=== PATIENT | female | born 1985 | race Caucasian/White ===

== ENCOUNTER 2017-10-17 16:02 | Observation (INO) ==
--- NOTE | 2017-10-17 16:10 | Emergency Department Note ---
Disposition Clinical Impression: Screening examination for STD (sexually transmitted disease) Abdominal pain Qualifiers: Abdominal location: unspecified location Qualified Code(s): R10.9 - Unspecified abdominal pain Acute appendicitis Qualifiers: Acute appendicitis type: unspecified acute appendicitis type Qualified Code(s) : K35.80 - Unspecified acute appendicitis UTI (urinary tract infection) Qualifiers: Urinary tract infection type: acute cystitis Hematuria presence: without hematuria Qualified Code(s): N30.00 - Acute cystitis without hematuria Disposition: Admitted As Inpatient Condition: Fair General Adult HPI - General Chief complaint: ED Abdominal Pain Stated complaint: abd pain Nursing Notes Reviewed: Yes Vital Signs Reviewed: Yes - History of Present Illness HPI Narrative: 32-year-old female presents emergency department with concern for generalized lower abdominal pain starting since last . Patient states that she slept all day yesterday, and aside from to the emergency department today. Patient denies any nausea or vomiting. Patient does state that she has had pyelonephritis before, but states she feels different. Patient still reports having her appendix and gallbladder. Patient denies any blood in her urine, but states that it appears a little darker. Patient denies any increased urinary frequency or urgency. Patient denies back pain. Patient does state she has a history of kidney stones. Reports nonbloody diarrhea. Reports no new vaginal discharge, genital lesions, or history of sexual transmitted infections. Patient does state that she has sex with multiple partners without condoms. Pain Scale: 8 - Related Data Previous Rx's Medication Instructions Recorded Ondansetron [Zofran] 8 mg PO Q8HR PRN #10 tablet 01/17/16 Promethazine [Phenergan] 25 mg RC Q6HR PRN #12 supp.rect 01/17/16 Allergies Allergy/AdvReac Type Severity Reaction Status Date / Time Penicillins AdvReac Hives Verified 01/17/16 20:12 Sulfa (Sulfonamide AdvReac Hives Verified 01/17/16 20:12 Antibiotics) All systems ED: reviewed and negative except as stated. Review of Systems: As Per HPI Constitutional: Denies: fever Cardiovascular: Denies: chest pain Respiratory: Denies: cough Gastrointestinal: Reports: abdominal pain. Denies: nausea, vomiting Genitourinary: Denies: urgency, dysuria, genital lesions Musculoskeletal: Denies: back pain Past Medical History - Past Medical History Medical history: Reports: kidney stones Psychiatric history: Reports: anxiety, bipolar, depression MEAT STUFFER history: Reports: no MEAT STUFFER history - Social History Smoking Status: Current every day smoker Smokeless Tobacco Status: No Alcohol use: Reports: occasionally Drug use: Reports: none Physical Exam - General General appearance: other (Appears uncomfortable) - Head Head exam: atraumatic, normocephalic - Eye Eye exam: Present: EOMI. Absent: scleral icterus - ENT ENT exam: normal oropharynx - Neck Neck exam: Present: trachea midline - Chest Chest inspection: Present: symmetric chest wall rise - Respiratory Respiratory exam: Present: normal lung sounds bilaterally. Absent: respiratory distress, accessory muscle use - Cardiovascular Cardiovascular exam: Present: normal rhythm, tachycardia - Abdominal Exam Abdominal exam: Present: soft, tenderness Abdominal tenderness: Present: RLQ, LLQ, diffuse, moderate - Female Appeals Assistant present during exam: Yes External Exam: Present: normal external exam Speculum Exam: Present: cervical discharge (Mucopurulent) Bimanual Exam: Present: right adnexal tenderness, left adnexal tenderness - Extremities Exam Extremities exam: Present: normal capillary refill - Back Exam Back exam: Absent: CVA tenderness (R), CVA tenderness (L) - Neurological Exam Neurological exam: Present: alert, oriented X3 - Psychiatric Psychiatric exam: Present: normal affect, normal mood Course Vital Signs Temperature 98.6 F 10/17/17 16:06 Pulse Rate 138 10/17/17 16:06 Respiratory Rate 20 10/17/17 16:06 Blood Pressure 111/78 10/17/17 16:06 O2 Sat by Pulse Oximetry 97 10/17/17 16:06 Temperature 98.1 F 10/17/17 22:12 Pulse Rate 85 10/17/17 22:12 Respiratory Rate 16 10/17/17 22:12 Blood Pressure 99/63 10/17/17 22:12 O2 Sat by Pulse Oximetry 100 10/17/17 22:12 Oxygen Delivery Oxygen Delivery Room Air Medical Decision Making - [facility] Narrative Medical decision making narrative: 32-year-old female presents emergency department with concern for abdominal pain. Patient is tachycardic initially, we obtain electrocardiogram and chest revealed nonspecific ST changes. Patient's not reporting chest pain. Patient is currently in sinus. We are obtaining a CT scan of abdomen and pelvis to rule out any intra-abdominal abnormality. Urinalysis reveals positive nitrites , mild leukocyte esterase, bacteria. test is negative. Patient has been provided a gram of Rocephin here in the emergency department. 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 We have given her Tylenol and Toradol for pain. We have provided a liter of normal saline. Patient has leukocytosis of 21.4. 19:35 CT scan of the abdomen and pelvis reveals tip appendicitis. I called Dr. Be. He will come down and see the patient at bedside. Dr. Be agrees to accept patient for admission for further management. Gonorrhea and chlamydia results are not here at this time. Patient has been getting Levaquin and Flagyl in addition to the gram of Rocephin she had today. Diagnosis is appendicitis with urinary tract infection. Abdomen/Pelvis CT 10/17/17 00:00 IMPRESSION: Findings suggestive of tip appendicitis, though I cannot exclude other etiologies for the inflammatory change and fluid seen in the right lower quadrant including ruptured follicle. Correlate with white blood cell count and physical exam findings. D/ / Elliott Lynch / Elliott Lynch Interpreting Provider: Elliott Lynch - Lab Data Result diagrams: 10/17/17 17:06 10/17/17 17:54 Lab Results 10/17/17 10/17/17 10/17/17 Range/Units 16:18 16:43 16:43 WBC (4.3-11.1) K/mcL RBC (3.82-4.97) M/mcL Hgb (11.5-15.4) g/dL Hct (35.3-44.9) % MCV (83.0-100.0) fL MCH (28.0-33.3) pg MCHC (31.6-35.5) g/dL RDW (11.5-14.5) % Plt Count (140-400) K/mcL MPV (9.4-12.4) fL Immature Gran % (0-4) % Seg Neutrophils % % Lymphocytes % % Monocytes % % Eosinophils % % Basophils % % Neutrophils # (1.6-8.9) K/mcL Lymphocytes # (0.6-4.6) K/mcL Monocytes # (0.0-1.3) K/mcL Eosinophils # (0.0-0.6) K/mcL Basophils # (0.0-0.2) K/mcL Sodium (136-145) mEq/L Potassium (3.5-5.1) mEq/L Chloride (98-107) mEq/L Carbon Dioxide (23-29) mEq/L BUN (6-20) mg/dL Creatinine (0.60-1.20) mg/dL Est GFR ( Amer) (> 60) Est GFR (Non-Af Amer) (> 60) BUN/Creatinine Ratio (6-26) Glucose (70-105) mg/dL Calculated Osmolality (280-300) Lactic Acid 1.4 (0.5-2.2) mmol/L Calcium (8.6-10.3) mg/dL Total Bilirubin (0.3-1.0) mg/dL AST (13-39) Units/L ALT (7-52) Units/L Alkaline Phosphatase (34-104) Units/L Serum Total Protein (6.4-8.9) g/dL Albumin (3.5-5.7) g/dL Globulin (2.4-3.5) g/dL Albumin/Globulin Ratio (1.1-2.2) Lipase (11-82) Units/L Urine Color Dark Yellow (Yellow) Urine Clarity Cloudy A (Clear) Urine pH 5.5 (5.0-8.0) pH Units Ur Specific [place] 1.030 H (1.010-1.025) Urine Protein 100 H (Neg-Trace) mg/dL Urine Glucose (UA) Normal (Normal) mg/dL Urine Ketones Negative (Negative) mg/dL Urine Blood Negative (Negative) Urine Nitrite Positive A (Negative) Urine Bilirubin Small H (Negative) Urine Urobilinogen Normal (Normal) mg/dL Ur Leukocyte Esterase Trace H (Negative) Urine Microscopic RBC 5-15 H (0-3) per hpf Urine Microscopic WBC 5-15 H (0-3) per hpf Ur Squamous Epith Cells Many H (None-Few) per lpf Urine Bacteria Many H (None-Few) per hpf Hyaline Casts Few (None-Few) per lpf Ur Culture Indicated? NO. A (NO) Urine Test Negative (Negative) Alta species DNA (Not Detect) Chlam trachomat DNA PCR (Not Detect) Gardnerella DNA Probe (Not Detect) N.gonorrhoeae DNA (PCR) (Not Detect) Trichomonas DNA Probe (Not Detect) Specimen Rejected 10/17/17 10/17/17 10/17/17 Range/Units 17:06 17:43 17:54 WBC 21.4 H (4.3-11.1) K/mcL RBC 5.21 H (3.82-4.97) M/mcL Hgb 14.8 (11.5-15.4) g/dL Hct 44.5 (35.3-44.9) % MCV 85.4 (83.0-100.0) fL MCH 28.4 (28.0-33.3) pg MCHC 33.3 (31.6-35.5) g/dL RDW 14.2 (11.5-14.5) % Plt Count 264 (140-400) K/mcL MPV 10.8 (9.4-12.4) fL Immature Gran % 2.7 (0-4) % Seg Neutrophils % 89.7 % Lymphocytes % 5.0 % Monocytes % 1.6 % Eosinophils % 0.7 % Basophils % 0.3 % Neutrophils # 19.2 H (1.6-8.9) K/mcL Lymphocytes # 1.1 (0.6-4.6) K/mcL Monocytes # 0.3 (0.0-1.3) K/mcL Eosinophils # 0.2 (0.0-0.6) K/mcL Basophils # 0.1 (0.0-0.2) K/mcL Sodium 134 L (136-145) mEq/L Potassium 3.4 L (3.5-5.1) mEq/L Chloride 104 (98-107) mEq/L Carbon Dioxide 26 (23-29) mEq/L BUN 14 (6-20) mg/dL Creatinine 0.59 L (0.60-1.20) mg/dL Est GFR ( Amer) > 60 (> 60) Est GFR (Non-Af Amer) > 60 (> 60) BUN/Creatinine Ratio 24 (6-26) Glucose 126 H (70-105) mg/dL Calculated Osmolality 280 (280-300) Lactic Acid (0.5-2.2) mmol/L Calcium 8.8 (8.6-10.3) mg/dL Total Bilirubin 0.8 (0.3-1.0) mg/dL AST 10 L (13-39) Units/L ALT 22 (7-52) Units/L Alkaline Phosphatase 68 (34-104) Units/L Serum Total Protein 6.1 L (6.4-8.9) g/dL Albumin 3.3 L (3.5-5.7) g/dL Globulin 2.8 (2.4-3.5) g/dL Albumin/Globulin Ratio 1.2 (1.1-2.2) Lipase 12 (11-82) Units/L Urine Color (Yellow) Urine Clarity (Clear) Urine pH (5.0-8.0) pH Units Ur Specific [place] (1.010-1.025) Urine Protein (Neg-Trace) mg/dL Urine Glucose (UA) (Normal) mg/dL Urine Ketones (Negative) mg/dL Urine Blood (Negative) Urine Nitrite (Negative) Urine Bilirubin (Negative) Urine Urobilinogen (Normal) mg/dL Ur Leukocyte Esterase (Negative) Urine Microscopic RBC (0-3) per hpf Urine Microscopic WBC (0-3) per hpf Ur Squamous Epith Cells (None-Few) per lpf Urine Bacteria (None-Few) per hpf Hyaline Casts (None-Few) per lpf Ur Culture Indicated? (NO) Urine Test (Negative) Alta species DNA (Not Detect) Chlam trachomat DNA PCR (Not Detect) Gardnerella DNA Probe (Not Detect) N.gonorrhoeae DNA (PCR) (Not Detect) Trichomonas DNA Probe (Not Detect) Specimen Rejected Hemolyzed 10/17/17 10/17/17 Range/Units 18:28 19:29 WBC (4.3-11.1) K/mcL RBC (3.82-4.97) M/mcL Hgb (11.5-15.4) g/dL Hct (35.3-44.9) % MCV (83.0-100.0) fL MCH (28.0-33.3) pg MCHC (31.6-35.5) g/dL RDW (11.5-14.5) % Plt Count (140-400) K/mcL MPV (9.4-12.4) fL Immature Gran % (0-4) % Seg Neutrophils % % Lymphocytes % % Monocytes % % Eosinophils % % Basophils % % Neutrophils # (1.6-8.9) K/mcL Lymphocytes # (0.6-4.6) K/mcL Monocytes # (0.0-1.3) K/mcL Eosinophils # (0.0-0.6) K/mcL Basophils # (0.0-0.2) K/mcL Sodium (136-145) mEq/L Potassium (3.5-5.1) mEq/L Chloride (98-107) mEq/L Carbon Dioxide (23-29) mEq/L BUN (6-20) mg/dL Creatinine (0.60-1.20) mg/dL Est GFR ( Amer) (> 60) Est GFR (Non-Af Amer) (> 60) BUN/Creatinine Ratio (6-26) Glucose (70-105) mg/dL Calculated Osmolality (280-300) Lactic Acid (0.5-2.2) mmol/L Calcium (8.6-10.3) mg/dL Total Bilirubin (0.3-1.0) mg/dL AST (13-39) Units/L ALT (7-52) Units/L Alkaline Phosphatase (34-104) Units/L Serum Total Protein (6.4-8.9) g/dL Albumin (3.5-5.7) g/dL Globulin (2.4-3.5) g/dL Albumin/Globulin Ratio (1.1-2.2) Lipase (11-82) Units/L Urine Color (Yellow) Urine Clarity (Clear) Urine pH (5.0-8.0) pH Units Ur Specific [place] (1.010-1.025) Urine Protein (Neg-Trace) mg/dL Urine Glucose (UA) (Normal) mg/dL Urine Ketones (Negative) mg/dL Urine Blood (Negative) Urine Nitrite (Negative) Urine Bilirubin (Negative) Urine Urobilinogen (Normal) mg/dL Ur Leukocyte Esterase (Negative) Urine Microscopic RBC (0-3) per hpf Urine Microscopic WBC (0-3) per hpf Ur Squamous Epith Cells (None-Few) per lpf Urine Bacteria (None-Few) per hpf Hyaline Casts (None-Few) per lpf Ur Culture Indicated? (NO) Urine Test (Negative) Alta species DNA Not Detected (Not Detect) Chlam trachomat DNA PCR NOT DETECTED (Not Detect) Gardnerella DNA Probe DETECTED A (Not Detect) N.gonorrhoeae DNA (PCR) DETECTED A (Not Detect) Trichomonas DNA Probe Not Detected (Not Detect) Specimen Rejected - EKG Data EKG #1 EKG attestation: Yes I reviewed and interpreted this EKG. EKG results narrative: 16:25 Ventricular rate 119 bpm, CA interval 153 ms, QRS duration 95 ms, QT 325 ms, QTC 396 ms, normal axis. Sinus tachycardia with a ventricular rate of [address] changes noted in the anterior leads V2, and anterior lead V3.
[2017-10-17] MEDS ORDERED: 0.9 % Sodium Chloride 1,000 ML IVC ONE ×3 (16:19→21:30)
[2017-10-17] MEDS ORDERED: Isovue-370 500 ML INFUS..BTL IV ONE (16:20)
[2017-10-17] MEDS ORDERED: 0.9 % Sodium Chloride 1,000 ML ONE (16:20)
[2017-10-17] MEDS ORDERED: Ondansetron 4 MG/2 ML VIAL IVP ONE (16:27)
--- NOTE | 2017-10-17 16:47 | Emergency Department Note ---
Disposition Clinical Impression: Abdominal pain, Acute appendicitis Disposition: Admitted As Inpatient Condition: Fair General Adult HPI - General Chief complaint: ED Abdominal Pain Stated complaint: abd pain Time Seen by Provider: 10/17/17 16:10 - History of Present Illness Pain Scale: 8 - Related Data Previous Rx's Medication Instructions Recorded Ondansetron [Zofran] 8 mg PO Q8HR PRN #10 tablet 01/17/16 Promethazine [Phenergan] 25 mg RC Q6HR PRN #12 supp.rect 01/17/16 Allergies Allergy/AdvReac Type Severity Reaction Status Date / Time Penicillins AdvReac Hives Verified 01/17/16 20:12 Sulfa (Sulfonamide AdvReac Hives Verified 01/17/16 20:12 Antibiotics) Past Medical History - Past Medical History Medical history: Reports: kidney stones Psychiatric history: Reports: anxiety, bipolar, depression SMT 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 SMT TECHNICIAN history - Social History Smoking Status: Current every day smoker Smokeless Tobacco Status: No Alcohol use: Reports: occasionally Drug use: Reports: none Physical Exam - General General appearance: alert, in no apparent distress Course Vital Signs Temperature 98.6 F 10/17/17 16:06 Pulse Rate 138 10/17/17 16:06 Respiratory Rate 20 10/17/17 16:06 Blood Pressure 111/78 10/17/17 16:06 O2 Sat by Pulse Oximetry 97 10/17/17 16:06 Temperature 98.1 F 10/17/17 22:12 Pulse Rate 85 10/17/17 22:12 Respiratory Rate 16 10/17/17 22:12 Blood Pressure 99/63 10/17/17 22:12 O2 Sat by Pulse Oximetry 100 10/17/17 22:12 Oxygen Delivery Oxygen Delivery Room Air Medical Decision Making - Lab Data Result diagrams: 10/17/17 17:06 10/17/17 17:54 Lab Results 10/17/17 10/17/17 10/17/17 Range/Units 16:18 16:43 16:43 WBC (4.3-11.1) K/mcL RBC (3.82-4.97) M/mcL Hgb (11.5-15.4) g/dL Hct (35.3-44.9) % MCV (83.0-100.0) fL MCH (28.0-33.3) pg MCHC (31.6-35.5) g/dL RDW (11.5-14.5) % Plt Count (140-400) K/mcL MPV (9.4-12.4) fL Immature Gran % (0-4) % Seg Neutrophils % % Lymphocytes % % Monocytes % % Eosinophils % % Basophils % % Neutrophils # (1.6-8.9) K/mcL Lymphocytes # (0.6-4.6) K/mcL Monocytes # (0.0-1.3) K/mcL Eosinophils # (0.0-0.6) K/mcL Basophils # (0.0-0.2) K/mcL Sodium (136-145) mEq/L Potassium (3.5-5.1) mEq/L Chloride (98-107) mEq/L Carbon Dioxide (23-29) mEq/L BUN (6-20) mg/dL Creatinine (0.60-1.20) mg/dL Est GFR ( Amer) (> 60) Est GFR (Non-Af Amer) (> 60) BUN/Creatinine Ratio (6-26) Glucose (70-105) mg/dL Calculated Osmolality (280-300) Lactic Acid 1.4 (0.5-2.2) mmol/L Calcium (8.6-10.3) mg/dL Total Bilirubin (0.3-1.0) mg/dL AST (13-39) Units/L ALT (7-52) Units/L Alkaline Phosphatase (34-104) Units/L Serum Total Protein (6.4-8.9) g/dL Albumin (3.5-5.7) g/dL Globulin (2.4-3.5) g/dL Albumin/Globulin Ratio (1.1-2.2) Lipase (11-82) Units/L Urine Color Dark Yellow (Yellow) Urine Clarity Cloudy A (Clear) Urine pH 5.5 (5.0-8.0) pH Units Ur Specific [place] 1.030 H (1.010-1.025) Urine Protein 100 H (Neg-Trace) mg/dL Urine Glucose (UA) Normal (Normal) mg/dL Urine Ketones Negative (Negative) mg/dL Urine Blood Negative (Negative) Urine Nitrite Positive A (Negative) Urine Bilirubin Small H (Negative) Urine Urobilinogen Normal (Normal) mg/dL Ur Leukocyte Esterase Trace H (Negative) Urine Microscopic RBC 5-15 H (0-3) per hpf Urine Microscopic WBC 5-15 H (0-3) per hpf Ur Squamous Epith Cells Many H (None-Few) per lpf Urine Bacteria Many H (None-Few) per hpf Hyaline Casts Few (None-Few) per lpf Ur Culture Indicated? NO. A (NO) Urine Test Negative (Negative) Alta species DNA (Not Detect) Chlam trachomat DNA PCR (Not Detect) Gardnerella DNA Probe (Not Detect) N.gonorrhoeae DNA (PCR) (Not Detect) Trichomonas DNA Probe (Not Detect) Specimen Rejected 10/17/17 10/17/17 10/17/17 Range/Units 17:06 17:43 17:54 WBC 21.4 H (4.3-11.1) K/mcL RBC 5.21 H (3.82-4.97) M/mcL Hgb 14.8 (11.5-15.4) g/dL Hct 44.5 (35.3-44.9) % MCV 85.4 (83.0-100.0) fL MCH 28.4 (28.0-33.3) pg MCHC 33.3 (31.6-35.5) g/dL RDW 14.2 (11.5-14.5) % Plt Count 264 (140-400) K/mcL MPV 10.8 (9.4-12.4) fL Immature Gran % 2.7 (0-4) % Seg Neutrophils % 89.7 % Lymphocytes % 5.0 % Monocytes % 1.6 % Eosinophils % 0.7 % Basophils % 0.3 % Neutrophils # 19.2 H (1.6-8.9) K/mcL Lymphocytes # 1.1 (0.6-4.6) K/mcL Monocytes # 0.3 (0.0-1.3) K/mcL Eosinophils # 0.2 (0.0-0.6) K/mcL Basophils # 0.1 (0.0-0.2) K/mcL Sodium 134 L (136-145) mEq/L Potassium 3.4 L (3.5-5.1) mEq/L Chloride 104 (98-107) mEq/L Carbon Dioxide 26 (23-29) mEq/L BUN 14 (6-20) mg/dL Creatinine 0.59 L (0.60-1.20) mg/dL Est GFR ( Amer) > 60 (> 60) Est GFR (Non-Af Amer) > 60 (> 60) BUN/Creatinine Ratio 24 (6-26) Glucose 126 H (70-105) mg/dL Calculated Osmolality 280 (280-300) Lactic Acid (0.5-2.2) mmol/L Calcium 8.8 (8.6-10.3) mg/dL Total Bilirubin 0.8 (0.3-1.0) mg/dL AST 10 L (13-39) Units/L ALT 22 (7-52) Units/L Alkaline Phosphatase 68 (34-104) Units/L Serum Total Protein 6.1 L (6.4-8.9) g/dL Albumin 3.3 L (3.5-5.7) g/dL Globulin 2.8 (2.4-3.5) g/dL Albumin/Globulin Ratio 1.2 (1.1-2.2) Lipase 12 (11-82) Units/L Urine Color (Yellow) Urine Clarity (Clear) Urine pH (5.0-8.0) pH Units Ur Specific [place] (1.010-1.025) Urine Protein (Neg-Trace) mg/dL Urine Glucose (UA) (Normal) mg/dL Urine Ketones (Negative) mg/dL Urine Blood (Negative) Urine Nitrite (Negative) Urine Bilirubin (Negative) Urine Urobilinogen (Normal) mg/dL Ur Leukocyte Esterase (Negative) Urine Microscopic RBC (0-3) per hpf Urine Microscopic WBC (0-3) per hpf Ur Squamous Epith Cells (None-Few) per lpf Urine Bacteria (None-Few) per hpf Hyaline Casts (None-Few) per lpf Ur Culture Indicated? (NO) Urine Test (Negative) Alta species DNA (Not Detect) Chlam trachomat DNA PCR (Not Detect) Gardnerella DNA Probe (Not Detect) N.gonorrhoeae DNA (PCR) (Not Detect) Trichomonas DNA Probe (Not Detect) Specimen Rejected Hemolyzed 10/17/17 10/17/17 Range/Units 18:28 19:29 WBC (4.3-11.1) K/mcL RBC (3.82-4.97) M/mcL Hgb (11.5-15.4) g/dL Hct (35.3-44.9) % MCV (83.0-100.0) fL MCH (28.0-33.3) pg MCHC (31.6-35.5) g/dL RDW (11.5-14.5) % Plt Count (140-400) K/mcL MPV (9.4-12.4) fL Immature Gran % (0-4) % Seg Neutrophils % % Lymphocytes % % Monocytes % % Eosinophils % % Basophils % % Neutrophils # (1.6-8.9) K/mcL Lymphocytes # (0.6-4.6) K/mcL Monocytes # (0.0-1.3) K/mcL Eosinophils # (0.0-0.6) K/mcL Basophils # (0.0-0.2) K/mcL Sodium (136-145) mEq/L Potassium (3.5-5.1) mEq/L Chloride (98-107) mEq/L Carbon Dioxide (23-29) mEq/L BUN (6-20) mg/dL Creatinine (0.60-1.20) mg/dL Est GFR ( Amer) (> 60) Est GFR (Non-Af Amer) (> 60) BUN/Creatinine Ratio (6-26) Glucose (70-105) mg/dL Calculated Osmolality (280-300) Lactic Acid (0.5-2.2) mmol/L Calcium (8.6-10.3) mg/dL Total Bilirubin (0.3-1.0) mg/dL AST (13-39) Units/L ALT (7-52) Units/L Alkaline Phosphatase (34-104) Units/L Serum Total Protein (6.4-8.9) g/dL Albumin (3.5-5.7) g/dL Globulin (2.4-3.5) g/dL Albumin/Globulin Ratio (1.1-2.2) Lipase (11-82) Units/L Urine Color (Yellow) Urine Clarity (Clear) Urine pH (5.0-8.0) pH Units Ur Specific [place] (1.010-1.025) Urine Protein (Neg-Trace) mg/dL Urine Glucose (UA) (Normal) mg/dL Urine Ketones (Negative) mg/dL Urine Blood (Negative) Urine Nitrite (Negative) Urine Bilirubin (Negative) Urine Urobilinogen (Normal) mg/dL Ur Leukocyte Esterase (Negative) Urine Microscopic RBC (0-3) per hpf Urine Microscopic WBC (0-3) per hpf Ur Squamous Epith Cells (None-Few) per lpf Urine Bacteria (None-Few) per hpf Hyaline Casts (None-Few) per lpf Ur Culture Indicated? (NO) Urine Test (Negative) Alta species DNA Not Detected (Not Detect) Chlam trachomat DNA PCR NOT DETECTED (Not Detect) Gardnerella DNA Probe DETECTED A (Not Detect) N.gonorrhoeae DNA (PCR) DETECTED A (Not Detect) Trichomonas DNA Probe Not Detected (Not Detect) Specimen Rejected Attestation Statement - Attestation Attestation: I examined this patient and my medical decision-making was reviewed with the Resident Physician. I agree with the documented findings, disposition and treatment plan as described except to the extent set forth below. Patient presents to the ED with chief complaint of abdominal pain. Onset 3 days ago. Diarrhea. No vomiting. No fever. On examination patient has profound tenderness anyway palpate her abdomen. Plan. Labs and CT scan. CT scan shows possible appendicitis. Patient with concerning pelvic exam as well. She is given broad-spectrum antibiotics. Surgical consult and admission. Abdomen/Pelvis CT 10/17/17 00:00 IMPRESSION: Findings suggestive of tip appendicitis, though I cannot exclude other etiologies for the inflammatory change and fluid seen in the right lower quadrant including ruptured follicle. Correlate with white blood cell count and physical exam findings. D/ / Elliott Lynch / Elliott Lynch Interpreting Provider: Elliott Lynch
[2017-10-17 17:00] LABS: Bilirubin,Urine Small (Negative); Blood,Urine Negative (Negative); Clarity,Urine Cloudy (Clear); Color,Urine Dark Yellow (Yellow); Glucose,Urine (UA) Normal (Normal); Ketones,Urine Negative (Negative); Leukocyte Esterase,Urine Trace (Negative); Nitrite,Urine Positive (Negative); PH,Urine 5.5 pH Units (5.0-8.0); Protein,Urine 100 mg/dL (Neg-Trace); Urobilinogen,Urine Normal (Normal)
[2017-10-17 17:02] LABS: Bacteria,Urine Many per hpf (None-Few); Hyaline Casts,Urine Few per lpf (None-Few); Squamous Epithelial Cell,Urine Many per lpf (None-Few)
[2017-10-17] MEDS ORDERED: cefTRIAXone 1,000 MG in Water for inj. (sterile) 20 ML 10 ML IVP ONE (17:12)
[2017-10-17] MEDS ORDERED: Ketorolac 15 MG/ML VIAL IVP ONE (17:13)
[2017-10-17 17:20] LABS: Basophils # 0.1 K/mcL (0.0-0.2); Basophils % 0.3 %; Eosinophils # 0.2 K/mcL (0.0-0.6); Eosinophils % 0.7 %; Hematocrit 44.5 % (35.3-44.9); Hemoglobin 14.8 g/dL (11.5-15.4); Immature Granulocytes % 2.7 % (0-4); Lymphocytes # 1.1 K/mcL (0.6-4.6); Mean Corpuscular HGB Conc 33.3 g/dL (31.6-35.5); Mean Corpuscular Hemoglobin 28.4 pg (28.0-33.3); Mean Corpuscular Volume 85.4 fL (83.0-100.0); Mean Platelet Volume 10.8 fL (9.4-12.4); Monocytes # 0.3 K/mcL (0.0-1.3); Monocytes % 1.6 %; Neutrophils # 19.2 K/mcL (1.6-8.9); Platelet Count 264 K/mcL (140-400); Red Blood Count 5.21 M/mcL (3.82-4.97); Red Cell Distribution Width 14.2 % (11.5-14.5); Segmented Neutrophils % 89.7 %
[2017-10-17 18:24] LABS: Alanine Aminotransferase 22 Units/L (7-52); Albumin 3.3 g/dL (3.5-5.7); Albumin/Globulin Ratio 1.2 (1.1-2.2); Alkaline Phosphatase 68 Units/L (34-104); Aspartate Amino Transferase 10 Units/L (13-39); BUN/Creatinine Ratio 24 (6-26); Bilirubin,Total 0.8 mg/dL (0.3-1.0); Blood Urea Nitrogen 14 mg/dL (6-20); Calcium 8.8 mg/dL (8.6-10.3); Carbon Dioxide 26 mEq/L (23-29); Chloride 104 mEq/L (98-107); Globulin 2.8 g/dL (2.4-3.5); Glucose 126 mg/dL (70-105); Lipase 12 Units/L (11-82); Osmolality,Calculated 280 (280-300); Potassium 3.4 mEq/L (3.5-5.1); Sodium 134 mEq/L (136-145); Total Protein 6.1 g/dL (6.4-8.9); eGFR For African Americans > 60 (> 60); eGFR For Non-African Americans > 60 (> 60)
[2017-10-17] MEDS ORDERED: MetroNIDAZOLE 500 MG/100 ML 500 MG/100 ML BAG IVPB ONE (19:39)
[2017-10-17] MEDS ORDERED: Levofloxacin 750 MG/150 ML 750 MG/150 ML BAG IVPB ONE (19:39)
[2017-10-17 20:54] LABS: Gardnerella DNA ***DETECTED*** (Not Detect); Trichomonas DNA Not Detected (Not Detect)
[2017-10-17 20:55] LABS: Candida DNA Not Detected (Not Detect)
--- NOTE | 2017-10-17 21:28 | General Surg History&Physical ---
Date of Encounter: 10/17/17 Time of Encounter: 21:26 Assessment and Plan (1) Acute appendicitis with localized peritonitis Current Visit: Yes Status: Acute 32F with acute appendicitis; non septic; HDS NPO IVF abx admit to hosptial plan for OR in AM The assessment and plan as outlined above was discussed with the patient and/or family members who expressed understanding and agreement. All questions were answered. History of Present Illness Chief complaint: abdominal pain HPI: Ms. Goldberg is a 32 year old female with no significant PMH who presents with 3 day history of worsening abdominal pain. The pain started in the mid/ periumbilical region and is now localized tot he RLQ. No associated fevers, chills, but the patient does report nausea, vomiting and anorexia. She does report prior C section in her medical history as well as a 15pk year history of smoking; Past Med Surg Social Fam HX - Past Medical History Medical history: kidney stones Psychiatric history: anxiety, bipolar, depression - Past Surgical History Additional surgical history: LEEP - Social History Smoking Status: Current every day smoker Smokeless Tobacco Status: No Alcohol use: occasionally Drug use: none - Additional Family History Additional family history: non contributory Medications and Allergies Ondansetron [Zofran] 8 mg PO Q8HR PRN #10 tablet 01/17/16 [Rx] Promethazine [Phenergan] 25 mg RC Q6HR PRN #12 supp.rect 01/17/16 [Rx] 3 Allergy/AdvReac Type Severity Reaction Status Date / Time Penicillins AdvReac Hives Verified 01/17/16 20:12 Sulfa (Sulfonamide AdvReac Hives Verified 01/17/16 20:12 Antibiotics) Review of Systems All systems PM: The remainder of the systems were reviewed and are negative General Surgery Exam Initial Vital Signs Temp Pulse Resp BP Pulse Ox 98.6 F 138 20 111/78 97 10/17/17 16:06 10/17/17 16:06 10/17/17 16:06 10/17/17 16:06 10/17/17 16:06 - General physical appearance no distress - Eyes normal ocular movement - ENT normocephalic - Neck no lymphadectomy - Respiratory normal expansion, normal respiratory effort - Cardiovascular Cardiovascular exam: Present: RRR - Abdomen Abdomen general surgery: Present: soft, tender Abdominal Tenderness: Present: RLQ (tender at McBurney's point), LLQ (? Rosving sign) Hernia: Present: none - Integumentary Integumentary general surgery: Present: warm and dry - Neurologic Present: CN 2-12 grossly intact - Musculoskeletal Present: normal posture - Psychiatric Psychiatric general surgery: Present: A&Ox3 Results - Labs 10/17/17 17:06 10/17/17 17:54 Abnormal lab results WBC 21.4 K/mcL (4.3-11.1) H 10/17/17 17:06 RBC 5.21 M/mcL (3.82-4.97) H 10/17/17 17:06 Neutrophils # 19.2 K/mcL (1.6-8.9) H 10/17/17 17:06 Sodium 134 mEq/L (136-145) L 10/17/17 17:54 Potassium 3.4 mEq/L (3.5-5.1) L 10/17/17 17:54 Creatinine 0.59 mg/dL (0.60-1.20) L 10/17/17 17:54 Glucose 126 mg/dL (70-105) H 10/17/17 17:54 AST 10 Units/L (13-39) L 10/17/17 17:54 Serum Total Protein 6.1 g/dL (6.4-8.9) L 10/17/17 17:54 Albumin 3.3 g/dL (3.5-5.7) L 10/17/17 17:54 Urine Clarity Cloudy (Clear) A 10/17/17 16:43 Ur Specific Stowell 1.030 (1.010-1.025) H 10/17/17 16:43 Urine Protein 100 mg/dL (Neg-Trace) H 10/17/17 16:43 Urine Nitrite Positive (Negative) A 10/17/17 16:43 Urine Bilirubin Small (Negative) H 10/17/17 16:43 Ur Leukocyte Esterase Trace (Negative) H 10/17/17 16:43 Urine Microscopic RBC 5-15 per hpf (0-3) H 10/17/17 16:43 Urine Microscopic WBC 5-15 per hpf (0-3) H 10/17/17 16:43 Ur Squamous Epith Cells Many per lpf (None-Few) H 10/17/17 16:43 Urine Bacteria Many per hpf (None-Few) H 10/17/17 16:43 Ur Culture Indicated? NO. (NO) A 10/17/17 16:43 Gardnerella DNA Probe DETECTED (Not Detect) A 10/17/17 19:29 All other labs normal. - Imaging CT scan - abdomen: report reviewed, image reviewed CT scan - pelvis: report reviewed, image reviewed (all imaging was reviewed and interpreted by me in combination with radiology reads)
[2017-10-17] MEDS ORDERED: Ondansetron ODT 4 MG TAB.RAPDIS SL PRN (21:30)
[2017-10-17] MEDS ORDERED: 0.9 % Sodium Chloride 1,000 ML IVC SCH (21:45)
[2017-10-17] MEDS: OXYCODONE Oral CONC 10 MG/0.5 ML ORAL.SYG SL PRN (22:34)
[2017-10-18] MEDS: MetroNIDAZOLE 500 MG/100 ML 500 MG/100 ML BAG IVPB SCH ×2 (01:18→09:14)
[2017-10-18] MEDS: OXYCODONE Oral CONC 10 MG/0.5 ML ORAL.SYG SL PRN ×3 (02:50→14:26)
[2017-10-18] MEDS ORDERED: *HR* Enoxaparin 40 MG/0.4 ML SYRINGE SQ SCH (06:00)
[2017-10-18] MEDS ORDERED: OXYCODONE Oral CONC 10 MG/0.5 ML ORAL.SYG SL ONE (06:13)
--- NOTE | 2017-10-18 08:45 | Event Note ---
Date of Encounter: 10/18/17 Time of Encounter: 08:43 Consulted for ATB for +Gonorrhea and BV. Pt has received rocephin IV for one dose. Will add one dose Azithromycin po and will write for flagyl BID to be taken post-op and and after discharge for a total of 5 days.
[2017-10-18] MEDS ORDERED: Azithromycin 250 MG TABLET PO ONE (08:46)
[2017-10-18] MEDS ORDERED: Levofloxacin 750 MG/150 ML 750 MG/150 ML BAG IVPB SCH (09:00)
[2017-10-18] MEDS ORDERED: Ketorolac 30 MG/ML VIAL ONE (09:34)
[2017-10-18] MEDS ORDERED: Lidocaine -MPF 2% 2 ML VIAL ONE (09:34)
[2017-10-18] MEDS ORDERED: Neostigmine Methylsulfate 3 MG/3 ML SYRINGE ONE (09:34)
[2017-10-18] MEDS ORDERED: Dexamethasone 4 MG/ML VIAL ONE (09:34)
[2017-10-18] MEDS ORDERED: Ondansetron 4 MG/2 ML VIAL ONE (09:34)
[2017-10-18] MEDS ORDERED: Lidocaine -MPF 4% 5 ML AMPUL ONE (09:34)
[2017-10-18] MEDS ORDERED: *HR* Rocuronium Bromide 50 MG/5 ML VIAL ONE (09:34)
[2017-10-18] MEDS ORDERED: *HR* FentaNYL (PF) 100 MCG/2 ML VIAL ONE ×3 (09:37→11:31)
[2017-10-18] MEDS ORDERED: *HR* Midazolam HCl 2 MG/2 ML VIAL ONE (09:37)
[2017-10-18] MEDS ORDERED: *HR* Propofol 200 MG/20 ML VIAL IVP ONE (09:38)
--- NOTE | 2017-10-18 09:50 | Anesthesia Evaluation PreOp ---
Date of Encounter: 10/18/17 Time of Encounter: 10:28 - Past History Planned Operation: Lap. appendectomy Cardiac History: Denies any Significant Hx Pulmonary History: Smoker, Asthma (Inhaler PRN) TEST SPECIALIST History: Denies Any Significant HX Other Medical History: Denies Any Significant HX Anesthesia History: No Prior Anesthetic Complications, Past Anesthesia (LEEP, C/ S) : No Test: Negative Alcohol Use: occasionally Drug use: none Medications and Allergies No Known Home Drugs 10/18/17 [History] 3 Allergy/AdvReac Type Severity Reaction Status Date / Time Penicillins AdvReac Hives Verified 01/17/16 20:12 Sulfa (Sulfonamide AdvReac Hives Verified 01/17/16 20:12 Antibiotics) - Meds/Allergy Pre-op Review Medications Reviewed: Yes Allergies Reviewed: Yes Beta Blockers on Current Med List: No Anesthesia Results - Labs 10/17/17 17:06 10/17/17 17:54 Laboratory Tests 10/17/17 10/17/17 16:18 17:54 Lactic Acid 1.4 Calcium 8.8 Total Bilirubin 0.8 AST 10 L ALT 22 Alkaline Phosphatase 68 Serum Total Protein 6.1 L Albumin 3.3 L Anesthesia Exam 2 Height 1.55 m Weight 43.091 kg BMI 18 Vital Signs Temp Pulse Resp BP Pulse Ox 98.6 F 138 20 111/78 97 10/17/17 16:06 10/17/17 16:06 10/17/17 16:06 10/17/17 16:06 10/17/17 16:06 - HEENT Teeth: Missing, Poor dentition Denture Type: Upper: Complete - TEST SPECIALIST LOC: Oriented - Cardiac Rhythm: Regular - Pulmonary Breath Sounds: bilateral Clear Anesthesia Assess/Plan ASA Score: 2 Modified Bk Scale for Level of Consciousness: Anixous, agitated or restless Anesthetic Plan: General Monitoring Plan: Standard Monitors Recovery Plan: PACU
[2017-10-18] MEDS ORDERED: Acetaminophen IV 1,000 MG/100 ML INFUS..BTL ONE (10:43)
[2017-10-18] MEDS ORDERED: *HR* Succinylcholine 200 MG/10 ML VIAL IVP ONE (10:55)
[2017-10-18] MEDS ORDERED: *HR* Promethazine 25 MG/ML VIAL IVP PRN (11:02)
[2017-10-18] MEDS ORDERED: *HR* Meperidine 25 MG/ML SYRINGE IVP PRN (11:02)
[2017-10-18] MEDS ORDERED: Dexamethasone 4 MG/ML VIAL IVP ONE (11:02)
[2017-10-18] MEDS ORDERED: Ondansetron 4 MG/2 ML VIAL IVP ONE (11:02)
[2017-10-18] MEDS ORDERED: CefOXitin 2,000 MG VIAL ONE (11:46)
[2017-10-18] MEDS ORDERED: *HR* HYDROmorphone (PF) 1 MG/ML SYRINGE ONE (11:47)
[2017-10-18] MEDS: *HR* HYDROmorphone (PF) 1 MG/ML SYRINGE IVP PRN ×2 (12:22→12:27)
--- NOTE | 2017-10-18 12:44 | Anesthesia Evaluation Post Op ---
Date of Encounter: 10/18/17 Time of Encounter: 12:43 Notes: Patient's vital signs have been reviewed. Patient is stable postoperatively and has adequately recovered from anesthesia. Patient is determined to have stable airway patency and respiratory function including respiratory rate and oxygen saturation. Patient has a stable heart rate, blood pressure and adequate hydration. Patients mental status is acceptable. Patients temperature is appropriate. Pain and nausea are adequately controlled. - Discharge PostOp Status: Transfer Patient to floor
--- NOTE | 2017-10-18 12:46 | General Surgery Progress Note ---
Date of Encounter: 10/18/17 Time of Encounter: 08:00 - Assessment and Plan (1) Acute appendicitis with localized peritonitis Current Visit: Yes Status: Acute 32F with acute appendicitis and PID OR today for appendectomy gear nicker consult for abx regimen as well as to establish follow up post op Subjective Patient reports: no new complaints, still having pain, afebrile, other (patient with positive test for gonorrhea and gardenella; discussed with patient prior to surgery) Objective Vital Signs - Last 8 Hours Temp Pulse Resp BP Pulse Ox 10/18/17 12:34 98 14 112/79 97 10/18/17 12:24 101 15 117/74 97 10/18/17 12:14 98.6 F 129 18 128/84 98 10/18/17 06:08 99.3 F 100 18 115/68 100 Intake and Output 10/17/17 10/18/17 10/18/17 23:59 07:59 15:59 Intake Total 0 2009 100 / 100 250 / 250 Output Total 0 / 0 0 / 0 5 / 5 Balance 2009 100 / 100 245 / 245 Intake: IV Fluids 100 / 100 250 / 250 Levaquin Premix 750mg/150 mL 150 / 150 750 mg In 150 ml @ 100 mls/hr IVPB DAILY [facility] Rx#:[id number] Flagyl Premix 500 MG/100 ML 500 100 / 100 100 / 100 mg In 100 ml @ 100 mls/hr IVPB Q8H [facility] Rx#:[id number] Oral 0 / 0 0 / 0 Output: Urine 0 / 0 0 / 0 Estimated Blood Loss 5 / 5 Other: Meal NPO for breakfast Weight 43.545 kg 43.545 kg Blood Glucose* 118 Patient Weight 10/18/17 23:59 Weight 43.545 kg - General physical appearance no distress - Respiratory normal expansion, normal respiratory effort - Cardiovascular Cardiovascular exam: Present: RRR - Abdomen Abdomen: Present: soft, tender Abdominal Tenderness: RLQ - Neurologic CN 2-12 grossly intact - Musculoskeletal normal posture - Labs 10/17/17 17:06 10/17/17 17:54 Consult Discharge Plan - Plan Referrals: NONE,PCP [Primary Care Provider] -
--- NOTE | 2017-10-18 12:49 | Operative Note ---
Date of procedure: 10/18/17 Pre-op diagnosis: acute appendicits, pelvic inflammatory disease Post-op diagnosis: same Procedure: laparoscopic appendectomy, washout of intraabdominal purulence Implants: none Complications: none Anesthesia: GETA Local Anesthetics: 0.5% Sensorcaine HCL SubQ (cc) Surgeon: Rojas Hu Was there an seo assistant present: No Battery Assembler Plastic Other: Graciela Jolly Estimated blood loss (cc): 5 Specimen: appendix Condition: stable Disposition: PACU Procedure in Detail: The patient was brought into the operating room suite. The patient was placed in the supine position. Mechanical DVT prophylaxis was initiated. The patient underwent smooth induction of general endotracheal anesthesia. The patient was prepped and draped in the usual fashion. Preoperative antibiotics were given. A timeout was held identifying the correct patient, pathology, and procedure. Everyone was in agreement and we began a procedure. Incision to Mesenteric Window I started bycreating a supraumbilical incision and via open Ward technique entered into the abdomen. I then used a Vicryl suture on a UR 6 needle in a [id number] fashion to reapproximate but not close the fascia. I then inserted the 10 trocar followed by the camera to visualize the intraabdominal cavity. I then created a 5 mm incision suprapubically and inserted the 5 mm trocar under direct visualization. Roughly 1 handbreadth lateral to the umbilical incision I created another 5 mm incision and inserted another 5 mm trocar under direct visualization. I then inserted the nontraumatic instruments into the 5 mm ports and began the procedure. I was able to identify the tinea coli coalescing at the base of the cecum to identify the appendix. Using the nontraumatic grasper I was able to grasp the appendix and then using the [place] dissector was able to create a mesenteric window. Mesenteric Window to Appendectomy I then inserted the nontraumatic grasper into the same mesenteric window to widen it. I then grasped the appendix and switched from the 10 mm camera to the 5 mm camera so that we can insert the stapler through the umbilical port. The teeth of the stapler through the mesenteric window. It should be stated that the stapler was a 45 mm bowel load stapler. It was positioned at the base of the appendix and I was able to confirm under direct visualization that the teeth contained no other structures such as the cecum. I then fired the stapler and resected the appendix from the base of the cecum. I then loaded up a vascular load stapler and then in the similar fashion did fire across the mesentery. Retrieval to Closure I then inserted the Endo Catch bag to retrieve the specimen which was intact upon retrieval. I then switched back to the 10 mm camera and inserted the nontraumatic grasper as well as a suction-fisher spear into the 5 mm ports. And under direct visualization I was able to appreciate the staple line of the mesoappendix as well as the staple line of the base of the cecum. There was no obvious leaking nor bleeding. The pelvis did have pockets of purulent material which I deduced was likely from her pID; I irrigated the abdomen and pelvis with mefoxin imed solution. I then concluded the procedure, turned off the insufflation, removed the trochars under direct visualization, and then closed the umbilical fascia using the Vicryl suture that was placed at the beginning. I then closed all incisions with interrupted 4-0 Monocryl. And then sealed with Dermabon. It should be stated that I did use 0.5% Marcaine as a local anesthetic. The patient tolerated the procedure well and did go back to PACU in stable condition.
--- NOTE | 2017-10-18 15:09 | Discharge Summary ---
<JoseEvans Levi - Last Filed: 10/18/17 15:06> - NOTES TO OUTPATIENT PROVIDER Notes to Outpatient Provider: s/p Laparoscopic Appendectomy with abdominal wash- out. Also being treated for UTI, gonorrhea, and gardnerella. Taking antibiotics for 5 days after discharge. Orders not resulted at time of discharge: Pending orders 10/18/17 11:58 Surgical Pathology [PTH] Routine Date of Encounter: 10/18/17 Time of Encounter: 15:12 - Discharge Diagnosis (1) Acute appendicitis with localized peritonitis Priority: Primary Status: Acute (2) UTI (urinary tract infection) Priority: Secondary Status: Acute Qualifiers: Urinary tract infection type: acute cystitis Hematuria presence: without hematuria Qualified Code(s): N30.00 - Acute cystitis without hematuria (3) Gonorrhea Priority: Secondary Status: Acute (4) Gardnerella infection Priority: Secondary Status: Acute General Surgery Exam Initial Vital Signs Temp Pulse Resp BP Pulse Ox 98.6 F 138 20 111/78 97 10/17/17 16:06 10/17/17 16:06 10/17/17 16:06 10/17/17 16:06 10/17/17 16:06 - General physical appearance well developed, well nourished, no distress - Respiratory normal expansion, normal respiratory effort - Cardiovascular Cardiovascular exam: Present: RRR - Abdomen Abdomen general surgery: Present: bowel sounds present, soft, tender ( appropriately) - Incision Incision: Present: clean and dry, intact - Integumentary Integumentary general surgery: Present: warm and dry, no abnormal pigmentation - Neurologic Present: CN 2-12 grossly intact, normal coordination - Psychiatric Psychiatric general surgery: Present: appropriate, oriented to person, oriented to place, oriented to time, speech is normal, memory intact - Hospital Course Hospital course: Ms. Goldberg is a 32 year old female with no PMH who presents with 3 day history of worsening abdominal pain. The pain started in the mid/periumbilical region and is now localized tot he RLQ. Associated nausea and anorexia. CT suggestive of acute appendicitis with fluid in RLQ. Patient was diagnosed with acute appendicitis and started on antibiotics. The patient was started on antibiotics. During the work-up in the ED it was also found that she has a UTI, gonorrhea, and gardnerella infections. Pt given a dose of Rocephin in ED. A call was made to [facility] and they recommended a one time dose of Azithromycin and continuing on Flagyl for 5 days upon discharge. The patient was observed overnight and then take to the OR for a laparoscopic appendectomy with intrabdominal wash-out. There were no complications and the patient tolerated the procedure well. The patient is recovering well and can be discharged home. - Time Spent with Patient Total time spent providing and/or coordinating discharge services: Greater than 30 minutes - Discharge Medications Prescriptions: Ondansetron ODT [Zofran ODT] 4 mg SL Q6HR PRN #15 tab.rapdis PRN Reason: Nausea And Vomiting OxyCODONE/APAP 5/325 [Percocet 5/325 MG] 1 each PO Q6HR PRN 3 Days #12 tablet PRN Reason: Pain Ibuprofen 800 mg PO Q8HR PRN #42 tablet PRN Reason: Pain Docusate [Colace] 100 mg PO BID #20 capsule Levofloxacin [Levaquin] 500 mg PO DAILY #5 tablet metroNIDAZOLE [Flagyl] 500 mg PO BID #10 tablet Home Medications: Docusate [Colace] 100 mg PO BID #20 capsule 10/18/17 [Rx] Ibuprofen 800 mg PO Q8HR PRN #42 tablet 10/18/17 [Rx] Levofloxacin [Levaquin] 500 mg PO DAILY #5 tablet 10/18/17 [Rx] Ondansetron ODT [Zofran ODT] 4 mg SL Q6HR PRN #15 tab.rapdis 10/18/17 [Rx] OxyCODONE/APAP 5/325 [Percocet 5/325 MG] 1 each PO Q6HR PRN 3 Days #12 tablet [Rx] metroNIDAZOLE [Flagyl] 500 mg PO BID #10 tablet 10/18/17 [Rx] Allergies/Adverse Reactions: 3 Allergy/AdvReac Type Severity Reaction Status Date / Time Penicillins AdvReac Hives Verified 01/17/16 20:12 Sulfa (Sulfonamide AdvReac Hives Verified 01/17/16 20:12 Antibiotics) Date of admission: 10/17/17 21:03 Primary care physician: PCP NONE Discharging clinician: Evans Garcia Anticipated date of discharge: 10/18/17 Procedures and tests throughout hospitalization: Date of procedure: 10/18/17 Pre-op diagnosis: acute appendicits, pelvic inflammatory disease Post-op diagnosis: same Procedure: laparoscopic appendectomy, washout of intraabdominal purulence Implants: none Complications: none Anesthesia: GETA Local Anesthetics: 0.5% Sensorcaine HCL SubQ (cc) Surgeon: Rojas Hu Was there an speech assistant present: No Social Media Marketing Specialist Other: Graciela Jolly Estimated blood loss (cc): 5 Specimen: appendix Labs on day of discharge: Labs from last 24 hours 10/18/17 06:07 POC Glucose 118 H - Patient Status Disposition: Home, Self-Care Condition: Fair Functional capacity at discharge: independent ambulation Overall status at discharge: patient is progressing back to baseline - Discharge Instructions Follow Up With: NONE,PCP [Primary Care Provider] - [facility] [place] [Provider Group] (1-2 weeks) Rojas Hu MD [Non-Partnered Physician] - (2 weeks) Additional Instructions: General Surgical Discharge Instructions 1. No pushing, pulling, or lifting greater than 15 lbs for 2 weeks. 2. You may shower beginning today, but no tub baths, soaking, or swimming for 2 weeks. 3. You may resume driving when you are off narcotics and are safe to react in a car. 4. Take ibuprofen every 8 hours for discomfort. If this does not relieve discomfort, you may take the as needed Percocet. Take narcotics as directed. Do not take more narcotics then directed and do not share your narcotics with any other person. Do not drink alcohol while on narcotics. 5. Take stool softeners (Colace) or a water based laxative (Miralax) while taking narcotics. You may hold for loose stools. 6. Report any fevers greater than 100.5F, increase abdominal discomfort, drainage that looks like pus, increased redness or pain at the surgical site, or any vomiting. 7. Report any pain in the calves, shortness of breath, or rapid heartbeat. 8. Follow-up in the office as directed in 2 weeks. Also follow-up with [facility] in 1-2 weeks. 9. Take Antibiotics (Levaquin and Flagyl) for 5 days. - Diet and Activity Activity: increase activity as tolerated Diet: advance to your usual diet <Rojas Hu - Last Filed: 10/18/17 17:11> Orders not resulted at time of discharge: Pending orders 10/18/17 11:58 Surgical Pathology [PTH] Routine Date of Encounter: 10/18/17 - Discharge Diagnosis (1) Acute appendicitis with localized peritonitis Status: Acute General Surgery Exam Initial Vital Signs Temp Pulse Resp BP Pulse Ox 98.6 F 138 20 111/78 97 10/17/17 16:06 10/17/17 16:06 10/17/17 16:06 10/17/17 16:06 10/17/17 16:06 - Hospital Course Hospital course: Ms. Goldberg is a 32 year old female - Time Spent with Patient Total time spent providing and/or coordinating discharge services: Date of admission: 10/17/17 21:03 Primary care physician: PCP NONE Labs on day of discharge: Labs from last 24 hours 10/18/17 06:07 POC Glucose 118 H - Attending Attestation I have personally seen and examined the patient. I have reviewed pertinent labs , imaging, progress notes, including this one. I agree with the above assessment and plan.
[2017-10-18 16:08] VITALS: BP 111/73
--- NOTE | 2017-10-20 09:47 | Electrocardiograph Report ---
[facility] Test Date: 2017-10-17 Pat Name: Lian Goldberg Department: 103 Room: 3A43 Gender: F Senior Research Scientist: MSC : [id number] Requested By: Navi Saldana Order Number: [id number] Reading MD: Kvng Palumbo Measurements Intervals [place] Rate: 119 P: 72 IA: 153 QRS: 85 QRSD: 95 T: 34 QT: 325 QTc: 396 Interpretive Statements SINUS TACHYCARDIA POSSIBLE RIGHT VENTRICULAR CONDUCTION DELAY [RSR (QR) IN V1/V2] NONSPECIFIC ST ELEVATION [0.05+ mV ST ELEVATION] ABNORMAL RHYTHM ECG Electronically Signed On 10-20-2017 9:45:24 EDT by Kvng Palumbo
== END 2017-10-18 16:23 | disposition home or self-care (01) ==
LOC: 3ANU 16:02 → EMEROO 16:02 → 3ANU 21:26
PROVIDERS: ADMIT Surgery; ATTEND Surgery

== ENCOUNTER 2019-12-17 12:31 | Observation (INO) ==
[2019-12-17] MEDS ORDERED: 0.9 % Sodium Chloride 1,000 ML IVC ONE ×2 (13:00→15:03)
[2019-12-17] MEDS ORDERED: Ondansetron 4 MG/2 ML VIAL IVP ONE (13:00)
[2019-12-17] MEDS ORDERED: Ketorolac 30 MG/ML VIAL IVP ONE (13:01)
[2019-12-17] MEDS ORDERED: Isovue-370 500 ML BOTTLE IVP ONE (13:05)
[2019-12-17 13:31] LABS: Basophils # 0.1 K/mcL (0.0-0.2); Eosinophils # 0.1 K/mcL (0.0-0.6); Eosinophils % 0.7 %; Hematocrit 45.5 % (35.3-44.9); Hemoglobin 15.4 g/dL (11.5-15.4); Immature Granulocytes % 0.5 % (0-4); Lymphocytes # 1.8 K/mcL (0.6-4.6); Lymphocytes % 13.7 %; Mean Corpuscular HGB Conc 33.8 g/dL (31.6-35.5); Mean Corpuscular Hemoglobin 29.3 pg (28.0-33.3); Mean Corpuscular Volume 86.5 fL (83.0-100.0); Mean Platelet Volume 10.6 fL (9.4-12.4); Monocytes # 0.7 K/mcL (0.0-1.3); Monocytes % 5.3 %; Platelet Count 291 K/mcL (140-400); Red Blood Count 5.26 M/mcL (3.82-4.97); Red Cell Distribution Width 13.2 % (11.5-14.5); Segmented Neutrophils % 78.8 %; White Blood Count 12.7 K/mcL (4.3-11.1)
[2019-12-17 13:50] LABS: Alanine Aminotransferase 18 Units/L (7-52); Albumin 4.8 g/dL (3.5-5.7); Albumin/Globulin Ratio 1.7 (1.1-2.2); Alkaline Phosphatase 83 Units/L (34-104); Amylase 43 Units/L (29-103); Aspartate Amino Transferase 16 Units/L (13-39); BUN/Creatinine Ratio 22 (6-26); Blood Urea Nitrogen 17 mg/dL (6-20); Calcium 10.1 mg/dL (8.6-10.3); Carbon Dioxide 26 mEq/L (23-29); Chloride 102 mEq/L (98-107); Globulin 2.8 g/dL (2.4-3.5); Glucose 189 mg/dL (70-105); Lipase 17 Units/L (11-82); Osmolality,Calculated 293 (280-300); Potassium 3.9 mEq/L (3.5-5.1); Sodium 138 mEq/L (136-145); Total Protein 7.6 g/dL (6.4-8.9); eGFR For African Americans > 60 (> 60); eGFR For Non-African Americans > 60 (> 60)
[2019-12-17] MEDS ORDERED: Pantoprazole 40 MG VIAL IVP ONE (14:24)
[2019-12-17] MEDS ORDERED: *HR* Promethazine 25 MG/ML VIAL IVP ONE (14:58)
[2019-12-17] MEDS ORDERED: *HR* HYDROmorphone (PF) 1 MG/ML SYRINGE IVP ONE ×2 (17:13→21:10)
[2019-12-17 17:30] LABS: Bacteria,Urine Few per hpf (None-Few); Bilirubin,Urine Negative (Negative); Blood,Urine Negative (Negative); Clarity,Urine Clear (Clear); Color,Urine Yellow (Yellow); Glucose,Urine (UA) Normal (Normal); Ketones,Urine Negative (Negative); Leukocyte Esterase,Urine Negative (Negative); Mucus,Urine Few per lpf (None-Few); Nitrite,Urine Negative (Negative); Protein,Urine 30 mg/dL (Neg-Trace); Specific Gravity,Urine > 1.030 (1.010-1.025); Squamous Epithelial Cell,Urine Moderate per hpf (None-Few); Urobilinogen,Urine >=8.0 mg/dL (Normal); WBC,Urine 0-3 per hpf (0-3)
[2019-12-17 18:19] LABS: Troponin I < 0.03 ng/mL (< 0.04)
[2019-12-17 18:37] LABS: Hepatitis B Surface Antigen Nonreactive (Nonreactive)
[2019-12-17 19:06] LABS: Hepatitis C Virus Antibody Nonreactive (Nonreactive)
[2019-12-17 19:07] LABS: Hepatitis A Antibody IgM Nonreactive (Nonreactive); Hepatitis B Core IgM Nonreactive (Nonreactive)
[2019-12-17 21:25] LABS: Prothrombin Time 11.6 Seconds (9.4-12.1)
[2019-12-17] MEDS ORDERED: Naloxone 0.4 MG/ML INJ IVP PRN (21:51)
[2019-12-17] MEDS ORDERED: Ondansetron 4 MG/2 ML VIAL IVP PRN (21:51)
[2019-12-17] MEDS ORDERED: Cefepime HCl 2,000 MG in Water for inj. (sterile) 20 ML IVP STA (21:54)
[2019-12-17] MEDS ORDERED: 0.9 % Sodium Chloride 1,000 ML IVC SCH (22:00)
[2019-12-17 23:25] LABS: Adenovirus Not Detected (Not Detect); Bordetella Pertussis Not Detected (Not Detect); Chlamydophila pneumoniae Not Detected (Not Detect); Coronavirus 229E Not Detected (Not Detect); Coronavirus HKU1 Not Detected (Not Detect); Coronavirus NL63 Not Detected (Not Detect); Coronavirus OC43 Not Detected (Not Detect); Human Metapneumovirus Not Detected (Not Detect); Human Rhinovirus/Enterovirus Not Detected (Not Detect); Influenza A Subtype 2009 H1 Not Detected (Not Detect); Influenza B Not Detected (Not Detect); Mycoplasma pneumoniae Not Detected (Not Detect); Parainfluenza Virus 1 Not Detected (Not Detect); Parainfluenza Virus 2 Not Detected (Not Detect); Parainfluenza Virus 3 Not Detected (Not Detect); Parainfluenza Virus 4 Not Detected (Not Detect); Respiratory Syncytial Virus Not Detected (Not Detect)
[2019-12-18] MEDS: Ketorolac 30 MG/ML VIAL IVP SCH ×4 (00:35→18:31)
[2019-12-18] MEDS: *HR* Promethazine 25 MG/ML VIAL IVP PRN ×3 (00:35→18:31)
[2019-12-18] MEDS: MetroNIDAZOLE 500 MG/100 ML 500 MG/100 ML BAG IVPB SCH ×4 (00:35→23:59)
[2019-12-18] MEDS ORDERED: 0.9 % Sodium Chloride 1,000 ML IVC SCH (00:39)
[2019-12-18] MEDS ORDERED: Cefepime HCl 2,000 MG in 0.9 % Sodium Chloride Mini Bag 100 ML IVPB SCH (06:00)
[2019-12-18 07:15] LABS: Basophils % 0.2 %; Hematocrit 38.9 % (35.3-44.9); Lymphocytes # 1.4 K/mcL (0.6-4.6); Lymphocytes % 8.6 %; Mean Corpuscular HGB Conc 34.2 g/dL (31.6-35.5); Mean Corpuscular Hemoglobin 29.7 pg (28.0-33.3); Mean Corpuscular Volume 86.8 fL (83.0-100.0); Mean Platelet Volume 10.8 fL (9.4-12.4); Monocytes # 1.1 K/mcL (0.0-1.3); Monocytes % 6.9 %; Neutrophils # 13.6 K/mcL (1.6-8.9); Platelet Count 224 K/mcL (140-400); Red Blood Count 4.48 M/mcL (3.82-4.97); Red Cell Distribution Width 13.2 % (11.5-14.5); Segmented Neutrophils % 83.3 %; White Blood Count 16.3 K/mcL (4.3-11.1)
[2019-12-18 07:16] LABS: Hemoglobin 13.3 g/dL (11.5-15.4)
[2019-12-18 07:19] LABS: INR 1.2; Prothrombin Time 13.2 Seconds (9.4-12.1)
[2019-12-18 07:21] LABS: Activated Partial Thrombo Time 29.7 Seconds (26.0-36.0)
[2019-12-18 07:36] LABS: Alanine Aminotransferase 53 Units/L (7-52); Albumin 4.1 g/dL (3.5-5.7); Albumin/Globulin Ratio 1.8 (1.1-2.2); Alkaline Phosphatase 91 Units/L (34-104); Aspartate Amino Transferase 38 Units/L (13-39); BUN/Creatinine Ratio 22 (6-26); Blood Urea Nitrogen 14 mg/dL (6-20); Calcium 9.3 mg/dL (8.6-10.3); Carbon Dioxide 23 mEq/L (23-29); Chloride 107 mEq/L (98-107); Globulin 2.3 g/dL (2.4-3.5); Glucose 157 mg/dL (70-105); Osmolality,Calculated 292 (280-300); Potassium 3.3 mEq/L (3.5-5.1); Sodium 139 mEq/L (136-145); Total Protein 6.4 g/dL (6.4-8.9); eGFR For African Americans > 60 (> 60); eGFR For Non-African Americans > 60 (> 60)
[2019-12-18 07:57] LABS: Estimated Average Glucose 117 mg/dl
[2019-12-18] MEDS ORDERED: *HR* OxyCODONE Immed Rel 5 MG TABLET PO PRN (11:23)
[2019-12-18] MEDS ORDERED: *HR* Propofol 200 MG/20 ML VIAL IVP ONE (11:33)
[2019-12-18] MEDS ORDERED: *HR* Midazolam HCl 2 MG/2 ML VIAL ONE (11:33)
[2019-12-18] MEDS ORDERED: *HR* FentaNYL (PF) 100 MCG/2 ML VIAL ONE ×2 (11:33→12:31)
[2019-12-18] MEDS ORDERED: *HR* Rocuronium Bromide 50 MG/5 ML VIAL ONE (11:34)
[2019-12-18] MEDS ORDERED: Lidocaine HCL 4 ML Topical Solution (Laryng-O-Jet Kit Sterile Pak) TP ONE (11:34)
[2019-12-18] MEDS ORDERED: Ondansetron 4 MG/2 ML VIAL ONE (11:34)
[2019-12-18] MEDS ORDERED: Lidocaine -MPF 2% 2 ML VIAL ONE (11:34)
[2019-12-18] MEDS ORDERED: Dexamethasone 4 MG/ML VIAL ONE (11:34)
[2019-12-18] MEDS ORDERED: *HR* HYDROMORPHONE 2 MG/ML VIAL ONE ×2 (11:36→12:11)
[2019-12-18 12:28] LABS: Amphetamine Screen,Urine Positive ng/mL (Cutoff=1000); Barbiturate Screen,Urine Negative ng/mL (Cutoff=200); Benzodiazepines Screen,Urine Negative ng/mL (Cutoff=200); Cannabinoid Screen,Urine Positive ng/mL (Cutoff = 50); Cocaine Screen,Urine Positive ng/mL (Cutoff= 300); Opiate Screen,Urine Positive ng/mL (Cutoff=300); Phencyclidine Screen,Urine Negative ng/mL (Cutoff=25)
[2019-12-18] MEDS: *HR* HYDROmorphone PF 0.5 MG/0.5 ML SYRINGE IVP PRN ×4 (12:50→13:10)
[2019-12-18] MEDS ORDERED: Naloxone 0.4 MG/ML INJ IVP PRN (13:58)
[2019-12-18] MEDS ORDERED: Ondansetron 4 MG/2 ML VIAL IVP PRN (13:58)
[2019-12-18] MEDS: Cefepime HCl 2,000 MG in 0.9 % Sodium Chloride Mini Bag 100 ML IVPB SCH ×2 (14:30→22:01)
[2019-12-19] MEDS: Cefepime HCl 2,000 MG in 0.9 % Sodium Chloride Mini Bag 100 ML IVPB SCH ×3 (04:50→23:50)
[2019-12-19] MEDS: Ketorolac 30 MG/ML VIAL IVP SCH ×5 (04:50→23:49)
[2019-12-19] MEDS: *HR* Promethazine 25 MG/ML VIAL IVP PRN ×2 (04:50→23:49)
[2019-12-19 05:52] LABS: Basophils % 0.1 %; Hematocrit 36.6 % (35.3-44.9); Hemoglobin 12.4 g/dL (11.5-15.4); Immature Granulocytes % 0.8 % (0-4); Lymphocytes # 1.1 K/mcL (0.6-4.6); Lymphocytes % 7.8 %; Mean Corpuscular HGB Conc 33.9 g/dL (31.6-35.5); Mean Corpuscular Hemoglobin 29.3 pg (28.0-33.3); Mean Corpuscular Volume 86.5 fL (83.0-100.0); Mean Platelet Volume 10.8 fL (9.4-12.4); Monocytes # 0.8 K/mcL (0.0-1.3); Monocytes % 5.9 %; Neutrophils # 12.1 K/mcL (1.6-8.9); Platelet Count 222 K/mcL (140-400); Red Blood Count 4.23 M/mcL (3.82-4.97); Red Cell Distribution Width 13.2 % (11.5-14.5); Segmented Neutrophils % 85.4 %; White Blood Count 14.1 K/mcL (4.3-11.1)
[2019-12-19 06:02] LABS: BUN/Creatinine Ratio 16 (6-26); Blood Urea Nitrogen 11 mg/dL (6-20); Calcium 9.4 mg/dL (8.6-10.3); Carbon Dioxide 28 mEq/L (23-29); Chloride 101 mEq/L (98-107); Glucose 164 mg/dL (70-105); Osmolality,Calculated 285 (280-300); Potassium 3.4 mEq/L (3.5-5.1); Sodium 136 mEq/L (136-145); eGFR For African Americans > 60 (> 60); eGFR For Non-African Americans > 60 (> 60)
[2019-12-19] MEDS ORDERED: Scopolamine Patch 1.5 MG PATCH.TD72 TD ONE (09:24)
[2019-12-19] MEDS: MetroNIDAZOLE 500 MG/100 ML 500 MG/100 ML BAG IVPB SCH ×2 (09:25→16:02)
[2019-12-20] MEDS: MetroNIDAZOLE 500 MG/100 ML 500 MG/100 ML BAG IVPB SCH ×2 (00:34→08:18)
[2019-12-20] MEDS: Ketorolac 30 MG/ML VIAL IVP SCH (05:18)
[2019-12-20] MEDS: Cefepime HCl 2,000 MG in 0.9 % Sodium Chloride Mini Bag 100 ML IVPB SCH (05:18)
[2019-12-20 06:26] VITALS: BP 142/85
[2019-12-20 07:15] LABS: Basophils % 0.4 %; Eosinophils % 0.3 %; Hematocrit 38.7 % (35.3-44.9); Hemoglobin 13.1 g/dL (11.5-15.4); Immature Granulocytes % 0.8 % (0-4); Lymphocytes # 1.4 K/mcL (0.6-4.6); Lymphocytes % 14.8 %; Mean Corpuscular HGB Conc 33.9 g/dL (31.6-35.5); Mean Corpuscular Hemoglobin 29.2 pg (28.0-33.3); Mean Corpuscular Volume 86.4 fL (83.0-100.0); Mean Platelet Volume 10.9 fL (9.4-12.4); Monocytes # 0.7 K/mcL (0.0-1.3); Monocytes % 7.5 %; Neutrophils # 7.3 K/mcL (1.6-8.9); Platelet Count 213 K/mcL (140-400); Red Blood Count 4.48 M/mcL (3.82-4.97); Red Cell Distribution Width 12.9 % (11.5-14.5); Segmented Neutrophils % 76.2 %; White Blood Count 9.5 K/mcL (4.3-11.1)
[2019-12-20 07:44] LABS: BUN/Creatinine Ratio 29 (6-26); Blood Urea Nitrogen 19 mg/dL (6-20); Calcium 9.3 mg/dL (8.6-10.3); Carbon Dioxide 24 mEq/L (23-29); Chloride 103 mEq/L (98-107); Glucose 130 mg/dL (70-105); Osmolality,Calculated 286 (280-300); Potassium 3.5 mEq/L (3.5-5.1); Sodium 136 mEq/L (136-145); eGFR For African Americans > 60 (> 60); eGFR For Non-African Americans > 60 (> 60)
== END 2019-12-20 11:40 | disposition home or self-care (01) ==
LOC: EMEROOARM 12:31 → 3ANU 12:31 → SUATTDRO 22:05 → 3ANU 23:46
PROVIDERS: ADMIT Student in an Organized Health Care Education/Training Program; ATTEND Internal Medicine